=== PATIENT | male | born 1995 ===

== ENCOUNTER 2020-10-01 13:59 | Observation (INO) | payer SELFPAY ==
[2020-10-01] MEDS ORDERED: SODIUM CHLORIDE 0.9% 1000 ML 1,000 ML IV ONE ×2 (16:10→18:56)
[2020-10-01] MEDS ORDERED: MORPHINE 4 MG/1 ML INJ IV ONE (16:15)
[2020-10-01] MEDS ORDERED: ONDANSETRON 4 MG/2 ML INJ IV ONE (16:15)
[2020-10-01] MEDS ORDERED: ACETAMINOPHEN 500 MG TAB PO ONE (16:18)
--- NOTE | 2020-10-01 16:18 | Event Note ---
ED Screening Note Date of service: 10/01/20 Time: 16:16 ED Screening Note: 25-year-old male presents to the emergency room by referral of Chente Garner for acute right lower quadrant pain fever nausea vomiting that started this morning. It was noted the patient had a temperature of 100.7 in triage heart rates 95. Patient states his pain is a 10 out of 10 and feels better when he bends down in the position. This initial assessment/diagnostic orders/clinical plan/treatment(s) is/are subject to change based on patients health status, clinical progression and re- assessment by fellow clinical providers in the ED. Further treatment and workup at subsequent clinical providers discretion. Patient/guardian urged not to elope from the ED as their condition may be serious if not clinically assessed and managed. Initial orders include:
--- NOTE | 2020-10-01 16:28 | Emergency Department Report ---
HPI - General Chief Complaint: Abdominal Pain Time Seen by Provider: 10/01/20 16:26 - HPI HPI: This is a 25-year-old male who presents to the emergency department, sent in from [facility], with complaint of abdominal pain, nausea, vomiting that started this morning. Patient says that the pain is generalized but is worst in the epigastrium. He denies feeling febrile but does present with a low-grade fever. He denies any diarrhea, constipation, chest pain, shortness of breath. He does admit to just recently developing what sounds like some dysuria. He has not taken anything for his symptoms prior to presentation. No known aggravating or alleviating factors. Currently the abdominal pain is 6 out of 10 in intensity and sharp in nature. No recent travel or sick contacts at home. He denies any past medical history. ED Past Medical Hx - Past Medical History Previous Medical History?: No - Surgical History Past Surgical History?: No - Social History Smoking Status: Never Smoker Substance Use Type: None ED Review of Systems ROS: Stated complaint: ABD PAINS Other details as noted in HPI Comment: All other systems reviewed and negative Constitutional: fever. denies: chills Eyes: denies: eye pain, vision change ENT: denies: ear pain, throat pain Respiratory: denies: cough, shortness of breath Cardiovascular: denies: chest pain, palpitations Gastrointestinal: abdominal pain, nausea, vomiting Genitourinary: dysuria. denies: discharge Musculoskeletal: denies: back pain, arthralgia Skin: denies: rash, lesions Neurological: denies: headache, weakness Physical Exam - Physical Exam Vital Signs: Vital Signs 10/01/20 10/01/20 15:38 15:39 Temperature 100.7 F H Pulse Rate 95 H Respiratory 18 Rate Blood Pressure 122/94 O2 Sat by Pulse 99 Oximetry Physical Exam: GENERAL: The patient is well-developed well-nourished. HENT: Normocephalic. Atraumatic. Patient has moist mucous membranes. EYES: Extraocular motions are intact. NECK: Supple. Trachea is midline. CHEST/LUNGS: Clear to auscultation. There is no respiratory distress noted. HEART/CARDIOVASCULAR: Regular. There is no tachycardia. There is no murmur. ABDOMEN: Abdomen is soft. Patient does not have any tenderness to palpation in the left lower quadrant but does in the other quadrants/regions of the abdomen. It is worst towards the epigastrium. No guarding. Patient has normal bowel sounds. There is no abdominal distention. SKIN: Skin is warm and dry. NEURO: The patient is awake, alert, and oriented. The patient is cooperative. The patient has no focal neurologic deficits. Normal speech. MUSCULOSKELETAL: There is no tenderness or deformity. There is no limitation range of motion. ED Course Vital Signs 10/01/20 10/01/20 15:38 15:39 Temperature 100.7 F H Pulse Rate 95 H Respiratory 18 Rate Blood Pressure 122/94 O2 Sat by Pulse 99 Oximetry - Consultations Consultation #1: 10/01/20 18:56 I spoke to the general surgeon on-call, Dr. Bowles, regarding the findings of early acute appendicitis. She would like the patient to be nothing by mouth immediately, agrees with the plan for IV antibiotics and pain control and gentle IV fluid, and she will see the patient tomorrow. The patient will most likely go to the OR tomorrow for an appendectomy. ED Medical Decision Making - Lab Data Result diagrams: 10/01/20 16:11 10/01/20 16:11 Lab Results 10/01/20 10/01/20 10/01/20 Range/Units 16:11 16:11 16:27 WBC 11.4 H (4.5-11.0) K/mm3 RBC 5.63 H (3.65-5.03) M/mm3 Hgb 17.7 H (11.8-15.2) gm/dl Hct 51.3 H (35.5-45.6) % MCV 91 (84-94) fl MCH 31 (28-32) pg MCHC 34 (32-34) % RDW 13.6 (13.2-15.2) % Plt Count 272 (140-440) K/mm3 Lymph % (Auto) 4.4 L (13.4-35.0) % [place] % (Auto) 5.1 (0.0-7.3) % Eos % (Auto) 0.9 (0.0-4.3) % Baso % (Auto) 0.1 (0.0-1.8) % Lymph # (Auto) 0.5 L (1.2-5.4) K/mm3 [place] # (Auto) 0.6 (0.0-0.8) K/mm3 Eos # (Auto) 0.1 (0.0-0.4) K/mm3 Baso # (Auto) 0.0 (0.0-0.1) K/mm3 Seg Neutrophils % 89.5 H (40.0-70.0) % Seg Neutrophils # 10.2 H (1.8-7.7) K/mm3 PT 13.7 (12.2-14.9) Sec. INR 1.06 (0.87-1.13) APTT 25.0 (24.2-36.6) Sec. Sodium 139 (137-145) mmol/L Potassium 4.1 (3.6-5.0) mmol/L Chloride 100.6 (98-107) mmol/L Carbon Dioxide 24 (22-30) mmol/L Anion Gap 19 mmol/L BUN 20 (9-20) mg/dL Creatinine 1.2 (0.8-1.3) mg/dL Estimated GFR > 60 ml/min BUN/Creatinine Ratio 17 % Glucose 112 H (75-100) mg/dL Calcium 9.0 (8.4-10.2) mg/dL Total Bilirubin 1.20 (0.1-1.2) mg/dL AST 26 (5-40) units/L ALT 32 (7-56) units/L Alkaline Phosphatase 98 (35-129) units/L Total Protein 7.7 (6.3-8.2) g/dL Albumin 4.9 (3.9-5) g/dL Albumin/Globulin Ratio 1.8 % Lipase 91 H (13-60) units/L Urine Color (Yellow) Urine Turbidity (Clear) Urine pH (5.0-7.0) Ur Specific [place] (1.003-1.030) Urine Protein (Negative) mg/dL Urine Glucose (UA) (Negative) mg/dL Urine Ketones (Negative) mg/dL Urine Blood (Negative) Urine Nitrite (Negative) Urine Bilirubin (Negative) Urine Urobilinogen (<2.0) mg/dL Ur Leukocyte Esterase (Negative) Urine WBC (Auto) (0.0-6.0) /HPF Urine RBC (Auto) (0.0-6.0) /HPF U Epithel Cells (Auto) (0-13.0) /HPF Urine Mucus /HPF 10/01/20 Range/Units 16:28 WBC (4.5-11.0) K/mm3 RBC (3.65-5.03) M/mm3 Hgb (11.8-15.2) gm/dl Hct (35.5-45.6) % MCV (84-94) fl MCH (28-32) pg MCHC (32-34) % RDW (13.2-15.2) % Plt Count (140-440) K/mm3 Lymph % (Auto) (13.4-35.0) % [place] % (Auto) (0.0-7.3) % Eos % (Auto) (0.0-4.3) % Baso % (Auto) (0.0-1.8) % Lymph # (Auto) (1.2-5.4) K/mm3 [place] # (Auto) (0.0-0.8) K/mm3 Eos # (Auto) (0.0-0.4) K/mm3 Baso # (Auto) (0.0-0.1) K/mm3 Seg Neutrophils % (40.0-70.0) % Seg Neutrophils # (1.8-7.7) K/mm3 PT (12.2-14.9) Sec. INR (0.87-1.13) APTT (24.2-36.6) Sec. Sodium (137-145) mmol/L Potassium (3.6-5.0) mmol/L Chloride (98-107) mmol/L Carbon Dioxide (22-30) mmol/L Anion Gap mmol/L BUN (9-20) mg/dL Creatinine (0.8-1.3) mg/dL Estimated GFR ml/min BUN/Creatinine Ratio % Glucose (75-100) mg/dL Calcium (8.4-10.2) mg/dL Total Bilirubin (0.1-1.2) mg/dL AST (5-40) units/L ALT (7-56) units/L Alkaline Phosphatase (35-129) units/L Total Protein (6.3-8.2) g/dL Albumin (3.9-5) g/dL Albumin/Globulin Ratio % Lipase (13-60) units/L Urine Color Yellow (Yellow) Urine Turbidity Clear (Clear) Urine pH 7.0 (5.0-7.0) Ur Specific [place] 1.026 (1.003-1.030) Urine Protein <15 mg/dl (Negative) mg/dL Urine Glucose (UA) Neg (Negative) mg/dL Urine Ketones Neg (Negative) mg/dL Urine Blood Neg (Negative) Urine Nitrite Neg (Negative) Urine Bilirubin Neg (Negative) Urine Urobilinogen < 2.0 (<2.0) mg/dL Ur Leukocyte Esterase Neg (Negative) Urine WBC (Auto) 1.0 (0.0-6.0) /HPF Urine RBC (Auto) 1.0 (0.0-6.0) /HPF U Epithel Cells (Auto) 1.0 (0-13.0) /HPF Urine Mucus 1+ /HPF - Radiology Data Radiology results: report reviewed CT ABDOMEN AND PELVIS WITH CONTRAST INDICATION / CLINICAL INFORMATION: Abdominal pain, nausea with vomiting, fever. TECHNIQUE: Axial CT images were obtained through the abdomen and pelvis after 100 cc Omnipaque [address] scans at this location are performed using CT dose reduction for ALARA by means of automated exposure control. COMPARISON: None available. FINDINGS: LOWER CHEST: No significant abnormality. LIVER: No significant abnormality. GALLBLADDER: No significant abnormality. BILE DUCTS: No significant abnormality. PANCREAS: No significant abnormality. SPLEEN: No significant abnormality. ADRENA LS: No significant abnormality. RIGHT KIDNEY / URETER: No significant abnormality. LEFT KIDNEY / URETER: No significant abnormality. STOMACH / SMALL BOWEL: No significant abnormality. COLON: No significant abnormality. APPENDIX: The appendix is hyperemic, mildly thickened and dilated, measuring 10 mm in transverse diameter with mild surrounding fat stranding. No appendicolith is seen. PERITONEUM: No free fluid. No free air. No fluid collection. LYMPH NODES: No significant adenopathy. AORTA / ARTERIES: No significant abnormality. IVC / VEINS: No significant abnormality. URINARY BLADDER: No significant abnormality. REPRODUCTIVE ORGANS: No significant abnormality. ADDITIONAL FINDINGS: None. SKE LETAL SYSTEM: No significant abnormality. IMPRESSION: 1. Suspected early acute appendicitis. Please correlate with clinical findings. 2. No other acute abnormality to explain the patient's complaints. - Medical Decision Making This patient presents with a 1 day history of abdominal pain, nausea and vomiting. He presents with a low-grade fever. On abdominal examination he has tenderness to palpation in every area for the left lower quadrant. No guarding. Labs have been mostly unremarkable. CT scan of the abdomen pelvis with IV contrast shows early acute appendicitis. General surgery has been contacted and consulted. Patient has received IV antiemetics, IV fluid, IV antibiotics and IV analgesia. He was accepted for admission by the hospitalist, Dr. Dover. Critical Care Time: Yes Critical care time in (mins) excluding proc time.: 35 Critical care attestation.: If time is entered above; I have spent that time in minutes in the direct care of this critically ill patient, excluding procedure time. Critical care time was spent on this patient in doing his initial evaluation, multiple reevaluations, ordering and interpretation of labs and imaging, IV analgesia, IV fluid resuscitation, IV antibiotics, discussion with general surgery, and multiple discussions with the patient. Critical Care Time: 35 minutes ED Disposition Clinical Impression: Appendicitis, acute Qualifiers: Acute appendicitis type: unspecified acute appendicitis type Qualified Code(s): K35.80 - Unspecified acute appendicitis Disposition: 09 OP ADMIT IP TO THIS HOSP Is pt being admited?: Yes Condition: Fair Time of Disposition: 18:15
[2020-10-01 17:00] LABS: Alanine Aminotransferase 32 units/L (7-56); Albumin 4.9 g/dL (3.9-5); BUN/Creatinine Ratio 17; Blood Urea Nitrogen 20 mg/dL (9-20); Hemolysis Index 9
[2020-10-01 17:04] LABS: Basophils % (Auto) 0.1 % (0.0-1.8); Eosinophils # (Auto) 0.1 K/mm3 (0.0-0.4); Eosinophils % (Auto) 0.9 % (0.0-4.3); Hematocrit 51.3 % (35.5-45.6); Hemoglobin 17.7 gm/dl (11.8-15.2); Lymphocytes # (Auto) 0.5 K/mm3 (1.2-5.4); Lymphocytes % (Auto) 4.4 % (13.4-35.0); Mean Corpuscular HGB Conc 34 % (32-34); Mean Corpuscular Volume 91 fl (84-94); Monocytes # (Auto) 0.6 K/mm3 (0.0-0.8); Monocytes % (Auto) 5.1 % (0.0-7.3); Platelet Count 272 K/mm3 (140-440); Red Blood Count 5.63 M/mm3 (3.65-5.03); Red Cell Distribution Width 13.6 % (13.2-15.2)
[2020-10-01 17:07] LABS: Bilirubin,Urine NEG (Negative); Blood,Urine NEG (Negative); Color,Urine Yellow (Yellow); Mucus,Urine 1+ /HPF; Protein,Urine <15 mg/dL mg/dL (Negative); Urobilinogen,Urine < 2.0 mg/dL (<2.0)
[2020-10-01 17:18] LABS: INR 1.06 (0.87-1.13)
--- NOTE | 2020-10-01 17:55 | Cat Scan Report ---
CT ABDOMEN AND PELVIS WITH CONTRAST INDICATION / CLINICAL INFORMATION: Abdominal pain, nausea with vomiting, fever. TECHNIQUE: Axial CT images were obtained through the abdomen and pelvis after 100 cc Omnipaque [address] scans at this location are performed using CT dose reduction for ALARA by means of automated exposure control. COMPARISON: None available. FINDINGS: LOWER CHEST: No significant abnormality. LIVER: No significant abnormality. GALLBLADDER: No significant abnormality. BILE DUCTS: No significant abnormality. PANCREAS: No significant abnormality. SPLEEN: No significant abnormality. ADRENALS: No significant abnormality. RIGHT KIDNEY / URETER: No significant abnormality. LEFT KIDNEY / URETER: No significant abnormality. STOMACH / SMALL BOWEL: No significant abnormality. COLON: No significant abnormality. APPENDIX: The appendix is hyperemic, mildly thickened and dilated, measuring 10 mm in transverse diam eter with mild surrounding fat stranding. No appendicolith is seen. PERITONEUM: No free fluid. No free air. No fluid collection. LYMPH NODES: No significant adenopathy. AORTA / ARTERIES: No significant abnormality. IVC / VEINS: No significant abnormality. URINARY BLADDER: No significant abnormality. REPRODUCTIVE ORGANS: No significant abnormality. ADDITIONAL FINDINGS: None. SKELETAL SYSTEM: No significant abnormality. IMPRESSION: 1. Suspected early acute appendicitis. Please correlate with clinical findings. 2. No other acute abnormality to explain the patient's complaints. Signer Name: Juanjo Valentin MD Signed: 10/01/2020 5:51 PM Workstation Name: [id number]
[2020-10-01] MEDS ORDERED: PIPERACIL/TAZOBACTA 4.5/NS 100 4.5 GM/100 ML VIAL IV ONE (17:59)
--- NOTE | 2020-10-01 19:34 | History and Physical Report ---
History of Present Illness Date of examination: 10/01/20 Date of admission: 10/01/2020 Chief complaint: Right lower quadrant pain since last night associated with nausea and vomiting History of present illness: 35-year-old Slovak-speaking male comes in from the urgent care clinic for right lower quadrant pain nausea vomiting since last night. Pain is about 10 on a scale of 1-10. Patient vomited about 10 times since last night. No diarrhea. No fever or chills. No exposure to coronavirus. Pain is exacerbated by eating and relieved by rest. No recent travel or contacts. No exposure to coronavirus. - Past Medical History Previous Medical History?: No - Surgical History Past Surgical History?: No - Social History Smoking Status: Never Smoker Substance Use Type: None Family history Non contributory Review of Systems ROS: Stated complaint: ABD PAINS Other details as noted in HPI Comment: All other systems reviewed and negative Constitutional: fever. denies: chills Eyes: denies: eye pain, vision change ENT: denies: ear pain, throat pain Respiratory: denies: cough, shortness of breath Cardiovascular: denies: chest pain, palpitations Gastrointestinal: abdominal pain, nausea, vomiting Genitourinary: dysuria. denies: discharge Musculoskeletal: denies: back pain, arthralgia Skin: denies: rash, lesions Neurological: denies: headache, weakness Medications and Allergies Allergies Allergy/AdvReac Type Severity Reaction Status Date / Time No Known Allergies Allergy Unverified 10/01/20 15:34 Active Meds: Active Medications Sodium Chloride (Nacl 0.9% 1000 Ml) 1,000 mls @ 125 mls/hr IV ONCE ONE Stop: 10/02/20 02:55 Exam - Constitutional Vitals: Temp Pulse Resp BP Pulse Ox 99.2 F 100 H 18 100/42 97 10/01/20 18:40 10/01/20 18:40 10/01/20 18:40 10/01/20 18:40 10/01/20 18:40 General appearance: Present: no acute distress, well-nourished - EENT Eyes: Present: PERRL ENT: hearing intact, clear oral mucosa - Neck Neck: Present: supple, normal ROM - Respiratory Respiratory effort: normal Respiratory: bilateral: CTA - Cardiovascular Heart rate: 78 Rhythm: regular Heart Sounds: Present: S1 & S2. Absent: rub, click - Extremities Extremities: pulses symmetrical, No edema Peripheral Pulses: within normal limits - Abdominal General gastrointestinal: Present: soft, non-tender, non-distended, normal bowel sounds Localized gastrointestinal: tender: RLQ (Guarding present), guarding: RLQ Male genitourinary: Present: normal - Integumentary Integumentary: Present: clear, warm, dry - Musculoskeletal Musculoskeletal: gait normal, strength equal bilaterally - Psychiatric Psychiatric: appropriate mood/affect, intact judgment & insight - Neurologic Neurologic: CNII-XII intact, moves all extremities - Allied Health Allied health notes reviewed: nursing, case management Results - Labs CBC & Chem 7: 10/01/20 16:11 10/01/20 16:11 Labs: Laboratory Last Values WBC 11.4 K/mm3 (4.5-11.0) H 10/01/20 16:11 RBC 5.63 M/mm3 (3.65-5.03) H 10/01/20 16:11 Hgb 17.7 gm/dl (11.8-15.2) H 10/01/20 16:11 Hct 51.3 % (35.5-45.6) H 10/01/20 16:11 MCV 91 fl (84-94) 10/01/20 16:11 MCH 31 pg (28-32) 10/01/20 16:11 MCHC 34 % (32-34) 10/01/20 16:11 RDW 13.6 % (13.2-15.2) 10/01/20 16:11 Plt Count 272 K/mm3 (140-440) 10/01/20 16:11 Lymph % (Auto) 4.4 % (13.4-35.0) L 10/01/20 16:11 [place] % (Auto) 5.1 % (0.0-7.3) 10/01/20 16:11 Eos % (Auto) 0.9 % (0.0-4.3) 10/01/20 16:11 Baso % (Auto) 0.1 % (0.0-1.8) 10/01/20 16:11 Lymph # (Auto) 0.5 K/mm3 (1.2-5.4) L 10/01/20 16:11 [place] # (Auto) 0.6 K/mm3 (0.0-0.8) 10/01/20 16:11 Eos # (Auto) 0.1 K/mm3 (0.0-0.4) 10/01/20 16:11 Baso # (Auto) 0.0 K/mm3 (0.0-0.1) 10/01/20 16:11 Seg Neutrophils % 89.5 % (40.0-70.0) H 10/01/20 16:11 Seg Neutrophils # 10.2 K/mm3 (1.8-7.7) H 10/01/20 16:11 PT 13.7 Sec. (12.2-14.9) 10/01/20 16:27 INR 1.06 (0.87-1.13) 10/01/20 16:27 APTT 25.0 Sec. (24.2-36.6) 10/01/20 16:27 Sodium 139 mmol/L (137-145) 10/01/20 16:11 Potassium 4.1 mmol/L (3.6-5.0) 10/01/20 16:11 Chloride 100.6 mmol/L (98-107) 10/01/20 16:11 Carbon Dioxide 24 mmol/L (22-30) 10/01/20 16:11 Anion Gap 19 mmol/L 10/01/20 16:11 BUN 20 mg/dL (9-20) 10/01/20 16:11 Creatinine 1.2 mg/dL (0.8-1.3) 10/01/20 16:11 Estimated GFR > 60 ml/min 10/01/20 16:11 BUN/Creatinine Ratio 17 % 10/01/20 16:11 Glucose 112 mg/dL (75-100) H 10/01/20 16:11 Calcium 9.0 mg/dL (8.4-10.2) 10/01/20 16:11 Total Bilirubin 1.20 mg/dL (0.1-1.2) 10/01/20 16:11 AST 26 units/L (5-40) 10/01/20 16:11 ALT 32 units/L (7-56) 10/01/20 16:11 Alkaline Phosphatase 98 units/L (35-129) 10/01/20 16:11 Total Protein 7.7 g/dL (6.3-8.2) 10/01/20 16:11 Albumin 4.9 g/dL (3.9-5) 10/01/20 16:11 Albumin/Globulin Ratio 1.8 % 10/01/20 16:11 Lipase 91 units/L (13-60) H 10/01/20 16:11 Urine Color Yellow (Yellow) 10/01/20 16:28 Urine Turbidity Clear (Clear) 10/01/20 16:28 Urine pH 7.0 (5.0-7.0) 10/01/20 16:28 Ur Specific [place] 1.026 (1.003-1.030) 10/01/20 16:28 Urine Protein <15 mg/dl mg/dL (Negative) 10/01/20 16:28 Urine Glucose (UA) Neg mg/dL (Negative) 10/01/20 16:28 Urine Ketones Neg mg/dL (Negative) 10/01/20 16:28 Urine Blood Neg (Negative) 10/01/20 16:28 Urine Nitrite Neg (Negative) 10/01/20 16:28 Urine Bilirubin Neg (Negative) 10/01/20 16:28 Urine Urobilinogen < 2.0 mg/dL (<2.0) 10/01/20 16:28 Ur Leukocyte Esterase Neg (Negative) 10/01/20 16:28 Urine WBC (Auto) 1.0 /HPF (0.0-6.0) 10/01/20 16:28 Urine RBC (Auto) 1.0 /HPF (0.0-6.0) 10/01/20 16:28 U Epithel Cells (Auto) 1.0 /HPF (0-13.0) 10/01/20 16:28 Urine Mucus 1+ /HPF 10/01/20 16:28 Short CBC 10/01/20 Range/Units 16:11 WBC 11.4 H (4.5-11.0) K/mm3 Hgb 17.7 H (11.8-15.2) gm/dl Hct 51.3 H (35.5-45.6) % Plt Count 272 (140-440) K/mm3 BMP 10/01/20 16:11 Sodium 139 Potassium 4.1 Chloride 100.6 Carbon Dioxide 24 BUN 20 Creatinine 1.2 Glucose 112 H Calcium 9.0 Liver Function 10/01/20 Range/Units 16:11 Total Bilirubin 1.20 (0.1-1.2) mg/dL AST 26 (5-40) units/L ALT 32 (7-56) units/L Alkaline Phosphatase 98 (35-129) units/L Albumin 4.9 (3.9-5) g/dL Urine 10/01/20 Range/Units 16:28 Urine Color Yellow (Yellow) Urine pH 7.0 (5.0-7.0) Ur Specific [place] 1.026 (1.003-1.030) Urine Protein <15 mg/dl (Negative) mg/dL Urine Glucose (UA) Neg (Negative) mg/dL Microbiology: Microbiology 10/01/20 16:27 Peripheral/Venous Blood Culture - Preliminary Culture in Progress 10/01/20 16:29 Peripheral/Venous Blood Culture - Preliminary Culture in Progress - Imaging and Cardiology CT scan - abdomen: report reviewed Imaging and Cardiology: Abdominal CAT scan Suspected early acute appendicitis. Please correlate with clinical findings No other acute abnormality to explain the patient's complaints Assessment and Plan Advance Directives: Yes (Full code) VTE prophylaxis?: Chemical Plan of care discussed with patient/family: Yes - Patient Problems (1) SIRS (systemic inflammatory response syndrome) Current Visit: Yes Status: Acute Plan to address problem: Patient's clinical picture with a temperature of 100.7 and heart rate of 100 and leukocytosis consistent with Sirs (2) Appendicitis, acute Current Visit: Yes Status: Acute Qualifiers: Acute appendicitis type: unspecified acute appendicitis type Qualified Code(s): K35.80 - Unspecified acute appendicitis Plan to address problem: IV fluids, IV Dilaudid as needed and IV antibiotics Surgical consult requested (3) Polycythemia due to fall in plasma volume Current Visit: Yes Status: Acute Plan to address problem: IV fluids for now (4) DVT prophylaxis Current Visit: Yes Status: Acute Plan to address problem: Heparin subcu and GI prophylaxis
[2020-10-01] MEDS ORDERED: HYDROmorphone 1 MG/1 ML INJ IV PRN (19:48)
[2020-10-01] MEDS ORDERED: MORPHINE 2 MG/1 ML INJ IV PRN (19:48)
[2020-10-01] MEDS ORDERED: ONDANSETRON 4 MG/2 ML INJ IV PRN (19:48)
[2020-10-01] MEDS ORDERED: ACETAMINOPHEN 325 MG TAB PO PRN (19:48)
[2020-10-01] MEDS: D5W/0.9% NACL 1,000 ML IV SCH (21:28)
[2020-10-01] MEDS: FAMOTIDINE 20 MG/2 ML INJ IV SCH (21:33)
[2020-10-01] MEDS: HEPARIN 5,000 UNIT/1 ML VIAL SUB-Q SCH (21:33)
[2020-10-02] MEDS: PIPERACIL/TAZOBACTA 4.5/NS 100 4.5 GM/100 ML VIAL IV SCH ×2 (02:00→09:10)
[2020-10-02 08:44] LABS: Basophils % (Auto) 0.2 % (0.0-1.8); Eosinophils # (Auto) 0.2 K/mm3 (0.0-0.4); Eosinophils % (Auto) 2.8 % (0.0-4.3); Hematocrit 42.1 % (35.5-45.6); Hemoglobin 14.4 gm/dl (11.8-15.2); Lymphocytes # (Auto) 1.4 K/mm3 (1.2-5.4); Lymphocytes % (Auto) 18.9 % (13.4-35.0); Mean Corpuscular HGB Conc 34 % (32-34); Mean Corpuscular Volume 90 fl (84-94); Monocytes # (Auto) 0.7 K/mm3 (0.0-0.8); Monocytes % (Auto) 10.2 % (0.0-7.3); Platelet Count 228 K/mm3 (140-440); Red Blood Count 4.66 M/mm3 (3.65-5.03); Red Cell Distribution Width 13.5 % (13.2-15.2)
--- NOTE | 2020-10-02 08:49 | Anesthesia Consultation ---
Anesthesia Consult and Med Hx Date of service: 10/02/20 - Airway Anesthetic Teeth Evaluation: Good ROM Head & Neck: Adequate Mental/Hyoid Distance: Adequate Mallampati Class: Class II Intubation Access Assessment: Probably Good - Pre-Operative Health Status ASA Pre-Surgery Classification: ASA2 Proposed Anesthetic Plan: General - Pulmonary Hx Asthma: No COPD: No Hx Pneumonia: No - Gastrointestinal Hx Gastroesophageal Reflux Disease: Yes (sometimes) - Endocrine Hx End Stage Renal Disease: No - Other Systems Hx Obesity: Yes (BMI 31.8)
--- NOTE | 2020-10-02 08:49 | Anesthesia Day of Surgery ---
Anesthesia Day of Surgery - Day of Surgery Patient Examined: Yes Patient H&P Reviewed: Yes Patient is NPO: Yes
[2020-10-02 09:05] LABS: Alanine Aminotransferase 21 units/L (7-56); Albumin 3.6 g/dL (3.9-5); BUN/Creatinine Ratio 14; Blood Urea Nitrogen 17 mg/dL (9-20); Calcium 7.8 mg/dL (8.4-10.2); Hemolysis Index 4
[2020-10-02] MEDS: FAMOTIDINE 20 MG/2 ML INJ IV SCH (09:10)
[2020-10-02] MEDS: D5W/0.9% NACL 1,000 ML IV SCH (09:11)
[2020-10-02] MEDS: HEPARIN 5,000 UNIT/1 ML VIAL SUB-Q SCH (10:29)
[2020-10-02] MEDS: POTASSIUM CHLORIDE 10 MEQ 10 MEQ/100 ML BAG IV SCH ×3 (10:37→14:07)
--- NOTE | 2020-10-02 11:35 | Progress Note ---
Assessment and Plan Assessment and plan: #Acute appendicitis Continue IV Zosyn Surgery evaluation for possible laparoscopic appendectomy #Polycythemia Due to dehydration IV hydration Monitor #Hypokalemia Repleting K #DVT prophylaxis-Heparin History Interval history: 25-year-old Pakistani-speaking male comes in from the urgent care clinic for right lower quadrant pain nausea vomiting since last night. Pain is about 10 on a scale of 1-10. Patient vomited about 10 times since last night. No diarrhea. No fever or chills. No exposure to coronavirus. Pain is exacerbated by eating and relieved by rest. No recent travel or contacts. No exposure to coronavirus. Here a CT abdomen showed acute appendicitis. he was started on IV antibiotics and general surgery was consulted. 10/02. He denies any abdominal pain this AM. Remains NPO for possible laparoscopic appendectomy. Surgery to see. Labs reviewed. Will replete K Hospitalist Physical - Physical exam Narrative exam: VITAL SIGNS: Reviewed. GENERAL: Awake HEAD: No signs of head trauma. EYES: Pupils are equal. Extraocular motions intact. MOUTH: Oropharynx is normal. NECK: No adenopathy, no JVD. CHEST: Chest with diminished breath sounds bilaterally. No wheezes, rales, or rhonchi. CARDIAC: normal S1 and S2, without murmurs, gallops, or rubs. ABDOMEN: Soft, non tender and non distended. No rebound or guarding, and no masses palpated. Bowel Sounds normal. MUSCULOSKELETAL: No edema NEUROLOGIC EXAM: Alert and oriented x3. No focal neurologic deficits SKIN: No obvious lesions - Constitutional Vitals: Temp Pulse Resp BP Pulse Ox 97.5 F L 66 18 111/61 99 10/02/20 11:09 10/02/20 11:09 10/02/20 11:09 10/02/20 11:09 10/02/20 11:09 Results - Labs CBC & Chem 7: 10/02/20 07:56 10/02/20 07:56 Labs: Laboratory Last Values WBC 7.2 K/mm3 (4.5-11.0) 10/02/20 07:56 RBC 4.66 M/mm3 (3.65-5.03) 10/02/20 07:56 Hgb 14.4 gm/dl (11.8-15.2) D 10/02/20 07:56 Hct 42.1 % (35.5-45.6) D 10/02/20 07:56 MCV 90 fl (84-94) 10/02/20 07:56 MCH 31 pg (28-32) 10/02/20 07:56 MCHC 34 % (32-34) 10/02/20 07:56 RDW 13.5 % (13.2-15.2) 10/02/20 07:56 Plt Count 228 K/mm3 (140-440) 10/02/20 07:56 Lymph % (Auto) 18.9 % (13.4-35.0) 10/02/20 07:56 [place] % (Auto) 10.2 % (0.0-7.3) H 10/02/20 07:56 Eos % (Auto) 2.8 % (0.0-4.3) 10/02/20 07:56 Baso % (Auto) 0.2 % (0.0-1.8) 10/02/20 07:56 Lymph # (Auto) 1.4 K/mm3 (1.2-5.4) 10/02/20 07:56 [place] # (Auto) 0.7 K/mm3 (0.0-0.8) 10/02/20 07:56 Eos # (Auto) 0.2 K/mm3 (0.0-0.4) 10/02/20 07:56 Baso # (Auto) 0.0 K/mm3 (0.0-0.1) 10/02/20 07:56 Seg Neutrophils % 67.9 % (40.0-70.0) 10/02/20 07:56 Seg Neutrophils # 4.9 K/mm3 (1.8-7.7) 10/02/20 07:56 PT 13.7 Sec. (12.2-14.9) 10/01/20 16:27 INR 1.06 (0.87-1.13) 10/01/20 16:27 APTT 25.0 Sec. (24.2-36.6) 10/01/20 16:27 Sodium 137 mmol/L (137-145) 10/02/20 07:56 Potassium 2.9 mmol/L (3.6-5.0) L* D 10/02/20 07:56 Chloride 102.0 mmol/L (98-107) 10/02/20 07:56 Carbon Dioxide 27 mmol/L (22-30) 10/02/20 07:56 Anion Gap 11 mmol/L 10/02/20 07:56 BUN 17 mg/dL (9-20) 10/02/20 07:56 Creatinine 1.2 mg/dL (0.8-1.3) 10/02/20 07:56 Estimated GFR > 60 ml/min 10/02/20 07:56 BUN/Creatinine Ratio 14 % 10/02/20 07:56 Glucose 82 mg/dL (75-100) 10/02/20 07:56 Hemoglobin A1c 5.3 % (4-6) 10/02/20 07:56 Calcium 7.8 mg/dL (8.4-10.2) L 10/02/20 07:56 Total Bilirubin 0.90 mg/dL (0.1-1.2) 10/02/20 07:56 AST 17 units/L (5-40) 10/02/20 07:56 ALT 21 units/L (7-56) 10/02/20 07:56 Alkaline Phosphatase 69 units/L (35-129) 10/02/20 07:56 Total Protein 6.1 g/dL (6.3-8.2) L D 10/02/20 07:56 Albumin 3.6 g/dL (3.9-5) L 10/02/20 07:56 Albumin/Globulin Ratio 1.4 % 10/02/20 07:56 Lipase 91 units/L (13-60) H 10/01/20 16:11 Urine Color Yellow (Yellow) 10/01/20 16:28 Urine Turbidity Clear (Clear) 10/01/20 16:28 Urine pH 7.0 (5.0-7.0) 10/01/20 16:28 Ur Specific [place] 1.026 (1.003-1.030) 10/01/20 16:28 Urine Protein <15 mg/dl mg/dL (Negative) 10/01/20 16:28 Urine Glucose (UA) Neg mg/dL (Negative) 10/01/20 16:28 Urine Ketones Neg mg/dL (Negative) 10/01/20 16:28 Urine Blood Neg (Negative) 10/01/20 16:28 Urine Nitrite Neg (Negative) 10/01/20 16:28 Urine Bilirubin Neg (Negative) 10/01/20 16:28 Urine Urobilinogen < 2.0 mg/dL (<2.0) 10/01/20 16:28 Ur Leukocyte Esterase Neg (Negative) 10/01/20 16:28 Urine WBC (Auto) 1.0 /HPF (0.0-6.0) 10/01/20 16:28 Urine RBC (Auto) 1.0 /HPF (0.0-6.0) 10/01/20 16:28 U Epithel Cells (Auto) 1.0 /HPF (0-13.0) 10/01/20 16:28 Urine Mucus 1+ /HPF 10/01/20 16:28 Microbiology: Microbiology 10/01/20 16:27 Peripheral/Venous Blood Culture - Preliminary Culture in Progress 10/01/20 16:29 Peripheral/Venous Blood Culture - Preliminary Culture in Progress [place]/IV: Voiding Method Toilet Active Medications - Current Medications Current Medications: Generic Name Dose Route Start Last Admin Trade Name Freq PRN Reason Stop Dose Admin Acetaminophen 650 mg 10/01/20 19:48 Acetaminophen 325 Mg Tab PO Q4H PRN Pain MILD(1-3)/Fever >100.5/MAHAN Famotidine 20 mg 10/01/20 22:00 10/02/20 09:10 Famotidine 20 Mg/2 Ml Inj IV 20 mg BID AMENA Administration Heparin Sodium (Porcine) 5,000 unit 10/01/20 22:00 10/02/20 10:29 Heparin 5,000 Unit/1 Ml Vial SUB-Q Not Given Q12HR AMENA Hydromorphone HCl 0.5 mg 10/01/20 19:48 Hydromorphone 1 Mg/1 Ml Inj IV Q3H PRN Pain , Severe (7-10) Dextrose/Sodium Chloride 1,000 mls @ 100 mls/hr 10/01/20 20:00 10/02/20 09:11 D5ns IV 100 mls/hr DIRECT AMENA Administration Piperacillin Sod/Tazobactam Sod 4.5 gm in 100 mls @ 200 mls/hr 10/02/20 02:00 10/02/20 09:10 Zosyn/Ns 4.5gm/100ml IV 200 mls/hr Q8H AMENA Administration Protocol Potassium Chloride 10 meq in 100 mls @ 100 mls/hr 10/02/20 11:00 10/02/20 10:37 Kcl 10meq/100ml IV 10/02/20 14:59 100 mls/hr Q1H AMENA Administration Morphine Sulfate 2 mg 10/01/20 19:48 Morphine 2 Mg/1 Ml Inj IV Q4H PRN Pain, Moderate (4-6) Ondansetron HCl 4 mg 10/01/20 19:48 Ondansetron 4 Mg/2 Ml Inj IV Q8H PRN Nausea And Vomiting Sodium Chloride 10 ml 10/01/20 22:00 10/02/20 10:39 Sodium Chloride 0.9% 10 Ml Flush Syringe IV Not Given BID AMENA Sodium Chloride 10 ml 10/01/20 19:48 Sodium Chloride 0.9% 10 Ml Flush Syringe IV PRN PRN LINE FLUSH
[2020-10-02] MEDS ORDERED: LIDOCAINE (1%) 10 MG/1 ML VIAL 20 ML MDV ONE (11:48)
[2020-10-02] MEDS ORDERED: BUPIVACAINE/PF (0.5%) 5 MG/1 ML 30 ML VIAL INFILTRATI ONE ×2 (11:48→12:34)
[2020-10-02] MEDS ORDERED: HYDROmorphone 1 MG/1 ML INJ ONE (11:51)
[2020-10-02] MEDS ORDERED: LIDOCAINE MPF (2%) 20 MG/1 ML VIAL 5 ML ONE (11:51)
[2020-10-02] MEDS ORDERED: propofoL 200 MG/20 ML VIAL IV ONE (11:51)
[2020-10-02] MEDS ORDERED: ROCURONIUM 50 MG/5 ML INJ IV ONE (11:51)
--- NOTE | 2020-10-02 12:07 | Consultation ---
History of Present Illness Consult date: 10/02/20 Reason for consult: abdominal pain - History of present illness History of present illness: 25 yo M with no PMHx hx who presents to ER with one day of worsening abdominal pain. Patient states he ate some food and felt fine. Several hours after this he developed periumbilical abdominal pain radiating to his lower abdomen and right lower back. The pain was sharp and gradually worsened. This was exacerbated by several episodes of clear vomitus which caused him to have epigastric pain. No f/c, cp, sob, c/d. He has never had any pain like this in the past. He went to outpatient clinic and was referred to ER for further w/u. Past History Past Medical History: No medical history Past Surgical History: No surgical history Social history: no significant social history Family history: no significant family history Medications and Allergies Allergies Allergy/AdvReac Type Severity Reaction Status Date / Time No Known Allergies Allergy Unverified 10/01/20 15:34 Active Meds: Active Medications Acetaminophen (Acetaminophen 325 Mg Tab) 650 mg PO Q4H PRN PRN Reason: Pain MILD(1-3)/Fever >100.5/MAHAN Famotidine (Famotidine 20 Mg/2 Ml Inj) 20 mg IV BID AMENA Last Admin: 10/02/20 09:10 Dose: 20 mg Documented by: Heparin Sodium (Porcine) (Heparin 5,000 Unit/1 Ml Vial) 5,000 unit SUB-Q Q12HR AMENA Last Admin: 10/02/20 10:29 Dose: Not Given Documented by: Hydromorphone HCl (Hydromorphone 1 Mg/1 Ml Inj) 0.5 mg IV Q3H PRN PRN Reason: Pain , Severe (7-10) Dextrose/Sodium Chloride (D5ns) 1,000 mls @ 100 mls/hr IV DIRECT AMENA Last Admin: 10/02/20 09:11 Dose: 100 mls/hr Documented by: Piperacillin Sod/Tazobactam Sod (Zosyn/Ns 4.5gm/100ml) 4.5 gm in 100 mls @ 200 mls/hr IV Q8H AMENA; Protocol Last Admin: 10/02/20 09:10 Dose: 200 mls/hr Documented by: Potassium Chloride (Kcl 10meq/100ml) 10 meq in 100 mls @ 100 mls/hr IV Q1H AMENA Stop: 10/02/20 14:59 Last Admin: 10/02/20 11:43 Dose: 100 mls/hr Documented by: Potassium Chloride (Kcl 10meq/100ml) 10 meq in 100 mls @ 100 mls/hr IV Q1H [facility] Stop: 10/02/20 13:59 Morphine Sulfate (Morphine 2 Mg/1 Ml Inj) 2 mg IV Q4H PRN PRN Reason: Pain, Moderate (4-6) Ondansetron HCl (Ondansetron 4 Mg/2 Ml Inj) 4 mg IV Q8H PRN PRN Reason: Nausea And Vomiting Sodium Chloride (Sodium Chloride 0.9% 10 Ml Flush Syringe) 10 ml IV BID [facility] Last Admin: 10/02/20 10:39 Dose: Not Given Documented by: Sodium Chloride (Sodium Chloride 0.9% 10 Ml Flush Syringe) 10 ml IV PRN PRN PRN Reason: LINE FLUSH Review of Systems All systems: negative (10 pt ROS performed and negative except for that listed in HPI) Exam Vital Signs Pulse Resp BP Pulse Ox 95 H 18 122/94 99 10/01/20 15:38 10/01/20 15:38 10/01/20 15:38 10/01/20 15:38 Narrative exam: Gen: AAOx3. NAD CV: S1, S2+ Resp: even and unlabored Abd: soft, ND, mild discomfort on palpation of the right lower quadrant. No r/r/g Ext: no c/c/e Results - Labs 10/02/20 07:56 10/02/20 07:56 Abnormal lab results 10/01/20 10/01/20 10/02/20 Range/Units 16:11 16:11 07:56 WBC 11.4 H (4.5-11.0) K/mm3 RBC 5.63 H (3.65-5.03) M/mm3 Hgb 17.7 H (11.8-15.2) gm/dl Hct 51.3 H (35.5-45.6) % Lymph % (Auto) 4.4 L (13.4-35.0) % [place] % (Auto) 10.2 H (0.0-7.3) % Lymph # (Auto) 0.5 L (1.2-5.4) K/mm3 Seg Neutrophils % 89.5 H (40.0-70.0) % Seg Neutrophils # 10.2 H (1.8-7.7) K/mm3 Potassium (3.6-5.0) mmol/L Glucose 112 H (75-100) mg/dL Calcium (8.4-10.2) mg/dL Total Protein (6.3-8.2) g/dL Albumin (3.9-5) g/dL Lipase 91 H (13-60) units/L 10/02/20 Range/Units 07:56 WBC (4.5-11.0) K/mm3 RBC (3.65-5.03) M/mm3 Hgb (11.8-15.2) gm/dl Hct (35.5-45.6) % Lymph % (Auto) (13.4-35.0) % [place] % (Auto) (0.0-7.3) % Lymph # (Auto) (1.2-5.4) K/mm3 Seg Neutrophils % (40.0-70.0) % Seg Neutrophils # (1.8-7.7) K/mm3 Potassium 2.9 L* D (3.6-5.0) mmol/L Glucose (75-100) mg/dL Calcium 7.8 L (8.4-10.2) mg/dL Total Protein 6.1 L D (6.3-8.2) g/dL Albumin 3.6 L (3.9-5) g/dL Lipase (13-60) units/L Diabetes panel 10/01/20 10/02/20 10/02/20 Range/Units 16:11 07:56 07:56 Sodium 139 137 (137-145) mmol/L Potassium 4.1 2.9 L* D (3.6-5.0) mmol/L Chloride 100.6 102.0 (98-107) mmol/L Carbon Dioxide 24 27 (22-30) mmol/L BUN 20 17 (9-20) mg/dL Creatinine 1.2 1.2 (0.8-1.3) mg/dL Glucose 112 H 82 (75-100) mg/dL Hemoglobin A1c 5.3 (4-6) % Calcium 9.0 7.8 L (8.4-10.2) mg/dL AST 26 17 (5-40) units/L ALT 32 21 (7-56) units/L Alkaline Phosphatase 98 69 (35-129) units/L Total Protein 7.7 6.1 L D (6.3-8.2) g/dL Albumin 4.9 3.6 L (3.9-5) g/dL Calcium panel 10/01/20 10/02/20 Range/Units 16:11 07:56 Calcium 9.0 7.8 L (8.4-10.2) mg/dL Albumin 4.9 3.6 L (3.9-5) g/dL Pituitary panel 10/01/20 10/02/20 Range/Units 16:11 07:56 Sodium 139 137 (137-145) mmol/L Potassium 4.1 2.9 L* D (3.6-5.0) mmol/L Chloride 100.6 102.0 (98-107) mmol/L Carbon Dioxide 24 27 (22-30) mmol/L BUN 20 17 (9-20) mg/dL Creatinine 1.2 1.2 (0.8-1.3) mg/dL Glucose 112 H 82 (75-100) mg/dL Calcium 9.0 7.8 L (8.4-10.2) mg/dL Adrenal panel 10/01/20 10/02/20 Range/Units 16:11 07:56 Sodium 139 137 (137-145) mmol/L Potassium 4.1 2.9 L* D (3.6-5.0) mmol/L Chloride 100.6 102.0 (98-107) mmol/L Carbon Dioxide 24 27 (22-30) mmol/L BUN 20 17 (9-20) mg/dL Creatinine 1.2 1.2 (0.8-1.3) mg/dL Glucose 112 H 82 (75-100) mg/dL Calcium 9.0 7.8 L (8.4-10.2) mg/dL Total Bilirubin 1.20 0.90 (0.1-1.2) mg/dL AST 26 17 (5-40) units/L ALT 32 21 (7-56) units/L Alkaline Phosphatase 98 69 (35-129) units/L Total Protein 7.7 6.1 L D (6.3-8.2) g/dL Albumin 4.9 3.6 L (3.9-5) g/dL - Imaging CT scan - abdomen: report reviewed, image reviewed CT scan - pelvis: report reviewed, image reviewed Assessment and Plan 25 yo M with acute appendicitis Plan: 1. NPO 2. IVF 3. replace K - 40meq KCL IV initiated 4. IV abx 5. DVT ppx 6. prn pain control 7. recommend OR for appendectomy. Discussed all risk, benefits, alternatives to surgery with the patient questions answered. Consent was obtained. Patient added to the OR schedule for today. Thank you for this consultation. Please call with any questions or concerns. Evaluation and treatment of this patient was during the time of the national and state emergency arising from COVID19 coronavirus pandemic. Treatment and procedures performed meet the current and available best practice and guidelines for patient during the COVID pandemic.
[2020-10-02] MEDS ORDERED: LIDOCAINE (1%) 10 MG/1 ML VIAL 20 ML MDV INFILTRATI ONE (12:34)
[2020-10-02] MEDS ORDERED: WATER FOR IRRIG STERILE 1,500 ML BOTTLE IR ONE (12:34)
[2020-10-02] MEDS ORDERED: GLYCOPYRROLATE 0.4 MG/2 ML INJ ONE ×2 (12:44)
[2020-10-02] MEDS ORDERED: NEOSTIGMINE 10MG/10 ML INJ MDV ONE (12:44)
[2020-10-02] MEDS ORDERED: ONDANSETRON 4 MG/2 ML INJ ONE (12:54)
[2020-10-02] MEDS ORDERED: KETOROLAC 30 MG/1 ML INJ ONE (12:54)
[2020-10-02] MEDS ORDERED: POTASSIUM CHLORIDE 10 MEQ 10 MEQ/100 ML BAG IV SCH ×2 (13:00→16:00)
[2020-10-02] MEDS ORDERED: HYDROcodone/ACETAMINOPHEN 5-325 MG TAB PO PRN (13:11)
--- NOTE | 2020-10-02 13:11 | Operative Report ---
Operative Report Operative Report: Date of operation: 10/02/2020 Preoperative diagnosis: acute appendicitis Postoperative diagnosis: Same as preop Procedure performed: Laparoscopic appendectomy Surgeon: Wood Bowles DO Anesthesia: GETA Findings: Thickened, inflamed appendix EBL:<5cc Specimen: appendix Disposition/Condition: stable to PACU HPI and indication: 25-year-old male presented to ER with abdominal pain x24 hours. Pain started in the periumbilical region and radiated to the lower abdomen into the right back. He was found to have an elevated WBC and acute appendicitis on CT scan. It was recommended that the patient undergo appendectomy. All risk, benefits, alternatives to surgery were discussed and questions answered. Consent was obtained. Procedure in detail: Patient was identified in the preop area and taken back to the OR and placed on the OR table in supine position. After anesthesia was induced a akins catheter was steriley placed by the circulating nurse. The left arm was tucked and all bony prominences padded appropriately. The abdomen was then prepped and draped in usual sterile fashion a timeout performed. Local anesthetic was infilitrated into all skin incision sites. A supraumbilical incision was made using an 11 blade and veress needle inserted. The positioning of the veress needle was confirmed using the saline drop test. The abdomen was then insufflated to 15mmHg without incident. The veress needle was withdrawn and a 5mm Optiview trocar was placed through this incision under direct visualizat ion. The abdomen was inspected and there was no underlying injury to the abdominal structures. A 5mm suprapubic trocar and a 12 mm LLQ trocar were placed under direct visualization. The appendix was visualized and noted to be dilated, inflammed. The appendix was grasped and retracted cephalad. The mesoappendix was identified and ligated using the harmonic scalpel. The base of the appendix was transected using an ethicon flex stapler 45mm white load. The staple line was intact and there was no bleeding seen. The ligated mesentery was examined and hemostasis was ensured. The appendix was placed into an endocatch bag and removed via the 12 mm port. This was passed off the table as specimen. The staple line and mesentery were again inspected and no bleeding visualized. The 12mm port fascia was closed with a single interrupted 0 vicryl stitch using the Erich Casey device. The remainder of the ports removed under direct visualization the abdomen desufflated. All skin incisions were closed using 4-0 monocryl subcuticular stitches and skin glue. All skin incisions were once again infiltrated with local anesthetic. At the end of the case, all sponge, instrument, sharp counts were correct x2. The patient was awoken from anesthesia, akins catheter removed, and he was taken to PACU in stable condition.
--- NOTE | 2020-10-02 13:23 | Discharge Summary ---
<DAVIDLEANDRALORI Hansen - Last Filed: 10/02/20 13:26> Providers - Providers Date of Admission: 10/01/20 18:15 Date of discharge: 10/02/20 Attending physician: CHARLES HERNANDEZ 10/01/20 18:14 Consult to Physician [CONS] Routine Comment: Consulting Provider: ANTONIO CARVAJAL Physician Instructions: Reason For Exam: appendicitis Primary care physician: [employer] Hospitalization Condition: Fair Hospital course: 25-year-old [place]er-speaking male comes in from the urgent care clinic for right lower quadrant pain nausea vomiting since last night. Pain is about 10 on a scale of 1-10. Patient vomited about 10 times since last night. No diarrhea. No fever or chills. No exposure to coronavirus. Pain is exacerbated by eating and relieved by rest. No recent travel or contacts. No exposure to coronavirus. Here a CT abdomen showed acute appendicitis. he was started on IV antibiotics and general surgery was consulted. Hospital course Patient had laparoscopic appendectomy with no complications. He has resumed diet. His potassium is currently being repleted. He has been cleared from surgical standpoint for discharge. He agrees with plan. Final Discharge Diagnosis (Prints w/discharge instructions): Acute appendicitis Time spent for discharge: 32 mins - Discharge Diagnoses (1) Appendicitis, acute Status: Acute Qualifiers: Acute appendicitis type: unspecified acute appendicitis type Qualified Code(s): K35.80 - Unspecified acute appendicitis (2) SIRS (systemic inflammatory response syndrome) Status: Acute Core Measure Documentation - Palliative Care Palliative Care/ Comfort Measures: Not Applicable - Core Measures Any of the following diagnoses?: none Exam - Physical Exam Narrative exam: VITAL SIGNS: Reviewed. GENERAL: Awake HEAD: No signs of head trauma. EYES: Pupils are equal. Extraocular motions intact. MOUTH: Oropharynx is normal. NECK: No adenopathy, no JVD. CHEST: Chest with diminished breath sounds bilaterally. No wheezes, rales, or rhonchi. CARDIAC: normal S1 and S2, without murmurs, gallops, or rubs. ABDOMEN: Soft, non tender and non distended. No rebound or guarding, and no masses palpated. Bowel Sounds normal. MUSCULOSKELETAL: No edema NEUROLOGIC EXAM: Alert and oriented x3. No focal neurologic deficits SKIN: No obvious lesions - Constitutional Vitals: Temp Pulse Resp BP Pulse Ox 97.5 F L 66 18 111/61 99 10/02/20 11:09 10/02/20 11:09 10/02/20 11:09 10/02/20 11:09 10/02/20 11:09 Plan Additional Instructions: Follow up with surgery in 1-2 weeks Follow up with: PRIMARY CARE, [Primary Care Provider] - 3-5 Days ANTONIO CARVAJAL DO [Staff Physician] - 14 Days Prescriptions: HYDROcodone/APAP 5-325 [[place] 5-325 mg TAB] 1 each PO Q4H PRN 2 Days #8 tablet PRN Reason: Pain, Moderate (4-6) <ANTONIO CARVAJAL - Last Filed: 10/02/20 14:59> Providers - Providers Date of Admission: 10/01/20 18:15 Attending physician: CHARLES HERNANDEZ 10/01/20 18:14 Consult to Physician [CONS] Routine Comment: Consulting Provider: ANTONIO CARVAJAL Physician Instructions: Reason For Exam: appendicitis Primary care physician: [employer] Exam - Constitutional Vitals: Temp Pulse Resp BP Pulse Ox 98.1 F 64 16 114/66 98 10/02/20 14:15 10/02/20 14:15 10/02/20 14:15 10/02/20 14:15 10/02/20 14:15 Plan Activity: other (no heavy lifting greater than 15 lbs for next 1-2 weeks) Diet: regular Wound: open to air (may shower tomorrow, pat incisions dry and do not scrub. do not submerge incisions in hottub/pool/bathtub for 2 weeks)
[2020-10-02 14:42] VITALS: BP 114/66
== END 2020-10-02 18:00 | disposition home or self-care (01) ==
LOC: ED 13:59 → 3B-SURG 18:15
PROVIDERS: ADMIT Internal Medicine; ATTEND Internal Medicine
DX: K35.80 Unspecified acute appendicitis (principal); R65.10 Systemic inflammatory response syndrome (SIRS) of non-infectious origin without acute organ dysfunction; D75.1 Secondary polycythemia; E87.6 Hypokalemia; Z79.899 Other long term (current) drug therapy
CPT/HCPCS: 36415; 44970; 74177; 80053; 81001; 83036; 83690; 85025; 85610; 85730; 87040; 88304; 96361; 96365; 96366; 96367; 96372; 96375; 96376; 99291; G0378; J1170; J1644; J1885; J2270; J2405; J2543; J2704; J2710; J3480; J7030; J7042; Q9967